=== PATIENT | female | born 1955 | race Caucasian/White ===

== ENCOUNTER 2018-03-28 09:14 | Outpatient (CLI) | payer BC, SELFPAY ==
[2018-03-28 10:34] LABS: Anion Gap 10.1 mmol/L (3-11); BUN 29 mg/dL (7-18); CO2 27.9 mmol/L (21.0-32.0); CREATININE 0.95 mg/dL (0.55-1.02); Calcium 9.7 mg/dL (8.5-10.1); Chloride 101 mmol/L (98-107); Cholesterol 202 mg/dL (50-200); Glucose 91 mg/dL (70-100); HDL Cholesterol 68 mg/dL (40-60); LDL CHOLESTEROL 114 mg/dL (<100); Potassium 4.6 mmol/L (3.5-5.1); Sodium 139 mmol/L (136-145); TSH 2.65 uIU/mL (0.358-3.74); Triglyceride 98 mg/dL (30-150)
[2018-03-29 11:02] LABS: Hepatitis C Ab w Rflx HCV PCR Negative (NEGAT)
[2018-03-29 11:55] LABS: HIV-1/2 Ag & Ab Screen Negative (NEGAT)
== END 2018-03-28 09:34 ==
PROVIDERS: PCP Internal Medicine; Visit Provider Internal Medicine
DX: E03.9 Hypothyroidism, unspecified (principal); I10 Essential (primary) hypertension; Z11.4 Encounter for screening for human immunodeficiency virus [HIV]; Z11.59 Encounter for screening for other viral diseases
CPT/HCPCS: 36415; 80048; 80061; 83721; 86803; 87389; 84443